=== PATIENT | female | born 1985 | race Two or more races ===

== ENCOUNTER 2021-05-02 15:42 | Observation (INO) | payer MEDICAID ==
[~2021-05-02] VITALS: Ht 157.5 cm; Wt 79.8 kg
[2021-05-02] MEDS ORDERED: PREN-129 (16:39)
[2021-05-02] MEDS ORDERED: ONDANSETRON HCL 4 MG/2 ML VIAL IV ONE ×2 (17:15→20:45)
[2021-05-02] MEDS ORDERED: SODIUM CHLORIDE 0.9% 1,000 ML IV ONE (17:15)
[2021-05-02] MEDS ORDERED: LACTATED RINGER'S 1,000 ML IV ONE (17:30)
[2021-05-02 17:38] LABS: Urine Bacteria FEW /hpf (None Seen); Urine Blood Negative /uL (Negative); Urine Mucus FEW (None Seen); Urine WBC 13 /hpf (0 - 5)
[2021-05-02] MEDS: TERBUTALINE SULFATE 1 MG/ML 1ML VIAL SC SCH ×2 (18:32→18:52)
[2021-05-02 18:40] LABS: BUN/Creatinine Ratio 11.7; Calcium 7.9 mg/dL (8.5-10.1); Potassium 4.1 mmol/L (3.5-5.1)
[2021-05-02] MEDS ORDERED: CALCIUM CARB 500 MG CHEW TAB PO ONE (20:45)
== END 2021-05-02 23:11 | disposition home or self-care (01) ==
LOC: LDRP 15:42
PROVIDERS: ADMIT Specialist; ATTEND Specialist
DX: O21.2 Late vomiting of pregnancy (principal); O26.893 Other specified pregnancy related conditions, third trimester; R19.7 Diarrhea, unspecified; R10.9 Unspecified abdominal pain; Z3A.30 30 weeks gestation of pregnancy
CPT/HCPCS: 36415; 59025; 76815; 80048; 81001; 81002; 94760; 96361; 96372; 96374; 96376; G0378; J2405; J3105; 96360; 96375